=== PATIENT | male | born 1980 | race Caucasian/White ===

== ENCOUNTER 2019-01-28 02:18 | Emergency (ER) | payer SELFPAY ==
[~2019-01-28] VITALS: Ht 188 cm; Wt 103.6 kg
[2019-01-28 02:54] LABS: BASOPHILS # (AUTO) 0.02 x10^3/uL (0-0.1); BASOPHILS % (AUTO) 0 % (0-1); EOSINOPHILS # (AUTO) 0.08 x10^3/uL (0-0.4); EOSINOPHILS % (AUTO) 1 % (1-7); LYMPHOCYTES # (AUTO) 2.78 x10^3/uL (1-3.4); LYMPHOCYTES % (AUTO) 43 % (22-44); MD NO; MEAN CORPUSCULAR HEMOGLOBIN 30.3 pg (27.5-34.5); MEAN CORPUSCULAR HGB CONC 33.5 g/dL (33.2-36.2); MEAN CORPUSCULAR VOLUME 90.5 fL (81-97); MEAN PLATELET VOLUME 8.9 fL (7.4-10.4); MONOCYTES # (AUTO) 0.49 x10^3/uL (0.2-0.8); MONOCYTES % (AUTO) 8 % (2-9); NEUTROPHILS # (AUTO) 3.12 x10^3/uL (1.8-6.8); NEUTROPHILS % (AUTO) 48 % (42-75); PLATELET COUNT 171 x10^3/uL (130-400); RED BLOOD COUNT 5.66 x10^6/uL (4.38-5.82); RED CELL DISTRIBUTION WIDTH 13.5 % (9.4-14.8)
[2019-01-28] MEDS ORDERED: MAALOX/HYOSCYAMINE/LIDOCAINE 45 ML BTL PO ONE (03:00)
[2019-01-28 03:05] LABS: ALBUMIN 4.6 g/dL (3.4-5.0); ANION GAP 8 mmol/L (5-15); CALCIUM 8.9 mg/dL (8.5-10.1); CHLORIDE 110 mmol/L (98-107); CREATININE 1.16 mg/dL (0.7-1.3)
[2019-01-28] MEDS ORDERED: MAALOX/HYOSCYAMINE/LIDOCAINE 45 ML BTL ONE (03:08)
[2019-01-28 03:09] LABS: TROPONIN I < 0.015 ng/mL (0.000-0.045)
[2019-01-28 04:20] VITALS: BP 131/84
== END 2019-01-28 04:22 ==
LOC: ED 04:00
DX: R07.89 Other chest pain (principal); I10 Essential (primary) hypertension; K21.9 Gastro-esophageal reflux disease without esophagitis; Z88.2 Allergy status to sulfonamides; Z88.8 Allergy status to other drugs, medicaments and biological substances
CPT/HCPCS: 36415; 71045; 80048; 82040; 84484; 85025; 93005; 99284